=== PATIENT | male | born 1965 | race Asian ===

== ENCOUNTER 2017-09-23 01:26 | Emergency (ER) | payer SELFPAY ==
[2017-09-23] MEDS: DIPHENHYDRAMINE 50 MG INJ IM (01:48)
[2017-09-23] MEDS: METHYLPREDNISOLONE 125 MG INJ IM (01:48)
== END 2017-09-23 02:23 | disposition home or self-care (01) ==
LOC: FTE 01:26
DX: S10.96XA Insect bite of unspecified part of neck, initial encounter (principal); W57.XXXA Bitten or stung by nonvenomous insect and other nonvenomous arthropods, initial encounter; Y92.9 Unspecified place or not applicable
CPT/HCPCS: 96372; 99284-25